=== PATIENT | male | born 1965 | race African-American/Black ===

== ENCOUNTER 2018-08-12 18:19 | Inpatient (IN) | payer OTHER ==
[2018-08-12 20:15] VITALS: BMI 22.3
--- NOTE | 2018-08-12 21:42 | HP ---
CIWA Score Nausea/Vomitin Muscle Tremors: 4-Moderate,w/Arms Extend Anxiety: 3 Agitation: 3 Paroxysmal Sweats: 1-Minimal Palms Moist Orientation: 0-Oriented Tacttile Disturbances: 0-None Auditory Disturbances: 0-None Visual Disturbances: 0-None Headache: 4-Moderately Severe CIWA-Ar Total Score: 17 - Admission Criteria OASAS Guidelines: Admission for Medically Managed Detox: Requires at least one of the followin. CIWA greater than 12 2. Seizures within the past 24 hours 3. Delirium tremens within the past 24 hours 4. Hallucinations within the past 24 hours 5. Acute intervention needed for co occurring medical disorder 6. Acute intervention needed for co occurring psychiatric disorder 7. Severe withdrawal that cannot be handled at a lower level of care (continued vomiting, continued diarrhea, abnormal vital signs) requiring intravenous medication and/or fluids 8. Admission ROS S - [facility] Chief Complaint: Alcohol withdrawal symptoms Allergies/Adverse Reactions: Allergies Allergy/AdvReac Type Severity Reaction Status Date / Time No Known Allergies Allergy Verified 08/12/18 20:11 History of Present Illness: 53 years old male with a long history of alcohol dependence is seeking admission to detox. Patient has been in previous detox and reports insignificant period of sobriety. He past medical history asthma and reports psych. history of Bipolar, Schizophrenia, Depression and PTSD. He denies suicide ideation at this time. Exam Limitations: No Limitations - Ebola screening Have you traveled outside of the country in the last 21 days: No (N) Have you had contact with anyone from an Ebola affected area: No Do you have a fever: No - Review of Systems Constitutional: Chills, Malaise, Changes in sleep EENT: reports: Sinus Pressure Respiratory: reports: No Symptoms reported Cardiac: reports: No Symptoms Reported GI: reports: Poor Appetite, Poor Fluid Intake, Abdominal cramping : reports: No Symptoms Reported Musculoskeletal: reports: Back Pain Integumentary: reports: Dryness, Flushing Neuro: reports: Headache, Tremors Endocrine: reports: No Symptoms Reported Hematology: reports: No Symptoms Reported Psychiatric: reports: Anxious Other Systems: Reviewed and Negative Patient History - Patient Medical History Hx Anemia: No Hx Asthma: Yes (Not on medication) Hx Chronic Obstructive Pulmonary Disease (COPD): No Hx Cancer: No Hx Cardiac Disorders: No Hx Congestive Heart Failure: No Hx Hypertension: No Hx Hypercholesterolemia: No Hx Pacemaker: No HX Cerebrovascular Accident: No Hx Seizures: No Hx Dementia: No Hx Diabetes: No Hx Gastrointestinal Disorders: No Hx Liver Disease: No Hx Genitourinary Disorders: No Hx Sexually Transmitted Disorders: No Hx Renal Disease (ESRD): No Hx Thyroid Disease: No Hx Human Immunodeficiency Virus (HIV): No (Negative 2018) Hx Hepatitis C: No Hx Depression: Yes Hx Suicide Attempt: No (Denies suicidal ideation at this time) Hx Bipolar Disorder: Yes Hx Schizophrenia: Yes - Patient Surgical History Past Surgical History: Yes Hx Neurologic Surgery: No Hx Cataract Extraction: No Hx Cardiac Surgery: No Hx Lung Surgery: No Hx Abdominal Surgery: No Hx Appendectomy: No Hx Cholecystectomy: No Hx Genitourinary Surgery: No Hx Orthopedic Surgery: No Other Surgical History: Cheek bone repair 2012 Anesthesia Reaction: No - PPD History Previous Implant?: No Documented Results: Negative w/o proof Implanted On Prior [facility] Admission?: No PPD to be Administered?: Yes - Reproductive History Patient is a Female of Child Bearing Age (11 -55 yrs old): No (Male) - Smoking Cessation Smoking history: Former smoker Have you smoked in the past 12 months: No Hx Chewing Tobacco Use: No Initiated information on smoking cessation: No - Substance & Tx. History Hx Alcohol Use: Yes Hx Substance Use: Yes Substance Use Type: Alcohol, Cocaine Hx Substance Use Treatment: No - Substances abused Alcohol Substance route: Oral Frequency: Daily Amount used: 3 PINTS Age of first use: 11 Date of last use: 08/12/18 Family Disease History - Family Disease History Family History: Denies Admission Physical Exam [facility] - Vital Signs Vital Signs: Vital Signs - 24 hr 08/12/18 08/12/18 20:11 20:54 Temperature 97.6 F 97.6 F Pulse Rate 83 83 Respiratory 18 18 Rate Blood Pressure 121/67 121/67 - Physical General Appearance: Yes: Moderate Distress HEENTM: Yes: EOMI, Normal ENT Inspection, Normal Voice, ALEXIS Respiratory: Yes: Lungs Clear, Normal Breath Sounds, No Respiratory Distress Neck: Yes: Supple Breast: Yes: Breast Exam Deferred Cardiology: Yes: Regular Rhythm, Regular Rate Abdominal: Yes: Normal Bowel Sounds, Soft Genitourinary: Yes: Within Normal Limits Back: Yes: Normal Inspection Musculoskeletal: Yes: Back pain, Muscle Pain Extremities: Yes: Tremors Neurological: Yes: Alert, Normal Mood/Affect Integumentary: Yes: Warm Lymphatic: Yes: Within Normal Limits - Diagnostic (1) Asthma Current Visit: Yes Status: Acute (2) Alcohol dependence with uncomplicated withdrawal Current Visit: Yes Status: Acute Cleared for Admission S - Detox or Rehab [facility] Level of Care: Medically Managed Detox Regimen/Protocol: Librium Breathalyzer - Breathalyzer Breathalyzer: 0 Urine Drug Screen - Test Device Lot number: [id number] Expiration date: 05/05/20 - Control Is test valid?: Yes - Results Drug screen NEGATIVE: No Urine drug screen results: THC-Marijuana, ESTER-Cocaine Inpatient Rehab Admission - Rehab Decision to Admit Inpatient rehab admission?: No
[2018-08-12] MEDS ORDERED: IBUPROFEN 400 MG TABLET (FP) PO PRN (21:54)
[2018-08-12] MEDS ORDERED: ACETAMINOPHEN 325 MG TABLET (FP) PO PRN ×2 (21:54)
[2018-08-12] MEDS ORDERED: MAG HYDROX/AL HYDROX/SIMETH 30 ML UNIT-DOSE CUP PO PRN (21:54)
[2018-08-12] MEDS ORDERED: BISMUTH SUBSALICYLATE 524 MG/30 ML UD PO PRN (21:54)
[2018-08-12] MEDS ORDERED: MENTHOL/PHENOL 1 EACH UD MM PRN (21:54)
[2018-08-12] MEDS ORDERED: MAGNESIUM HYDROX 2400MG/30ML ORAL SUSPENSION 30 ML CUP PO PRN (21:54)
[2018-08-12] MEDS ORDERED: MAGNESIUM CITRATE 300 ML BOTTLE PO PRN (21:54)
[2018-08-12] MEDS ORDERED: hydrOXYzine PAMOATE 25 MG CAPSULE (FP) PO PRN (21:54)
[2018-08-12] MEDS ORDERED: chlordiazePOXIDE HCL 25 MG CAPSULE PO PRN (21:54)
[2018-08-12] MEDS: chlordiazePOXIDE HCL 25 MG CAPSULE PO SCH (23:06)
[2018-08-12] MEDS: MELATONIN 5 MG TABLETS PO PRN (23:07)
[2018-08-12] MEDS: THIAMINE HCL 100 MG TABLET (FP) PO SCH (23:11)
[2018-08-13] MEDS: chlordiazePOXIDE HCL 25 MG CAPSULE PO SCH ×4 (06:15→23:21)
--- NOTE | 2018-08-13 10:06 | PN ---
[facility] CIWA - CIWA Score Nausea/Vomitin-No Nausea/No Vomiting Muscle Tremors: 3 Anxiety: 2 Agitation: 1-Slight > Activity Paroxysmal Sweats: 4-Forehead w/Sweat Beads Orientation: 0-Oriented Tacttile Disturbances: 0-None Auditory Disturbances: 0-None Visual Disturbances: 0-None Headache: 2-Mild CIWA-Ar Total Score: 12 [facility] Progress Note (SOAP) Subjective: c/o sweats, headache, back pain, and anxiety. Objective: 08/13/18 10:08 Vital Signs 08/13/18 08/13/18 08/13/18 03:30 07:52 09:48 Temperature 96.8 F L 99.1 F Pulse Rate 75 82 Respiratory 18 18 18 Rate Blood Pressure 107/50 L 127/72 Assessment: 08/13/18 10:09 AOX3, no distress, ambulating in the unit withdrawal symptom persists Plan: continue detox increase fluids.
[2018-08-13] MEDS: PRENATAL VITAMINS W/ FOLIC ACID TABLET (FP) PO SCH (10:32)
--- NOTE | 2018-08-13 10:38 | CONSULT ---
[facility] Psychiatric Consult - Data Date of interview: 08/13/18 Admission source: [facility] Identifying data: First admission to [facility] for this 53 y/o AA male seeking detoxification treatment (alcohol, cocaine, cannabis). Patient is single, a father of five, homeless, unemployed and deprived of income. Substance Abuse History: Discussed with patient in this session. See [facility] report for details : Smoking history: Former smoker. Have you smoked in the past 12 months: No. Hx Chewing Tobacco Use: No. Initiated information on smoking cessation: No. - Substance & Tx. History. Hx Alcohol Use: Yes. Hx Substance Use: Yes. Substance Use Type: Alcohol, Cocaine. Hx Substance Use Treatment: No. - Substances abused. Alcohol. Substance route: Oral. Frequency: Daily. Amount used: 3 PINTS. Age of first use: 11. Date of last use: 08/12/18 Medical History: Bronchial asthma. Psychiatric History: No reported history of psychiatric hospitalizations. Patient has, reportedly, been diagnosed with schizophrenia, bipolar disorder and PTSD. He indicates affiliation with the [facility] [facility] in [facility] (no show for weeks as per self-report). Maintained on aripriprazole (dose + date of last intake : not recalled). Mr Paz denies history of suicide attempts. Physical/Sexual Abuse/Trauma History: Heavy stressors : history of 28 cumulative years of incarceration, homelessness, lack of support, financial difficulties, no vocational skills and addictions. Additional Comment: Urine drug screen results: THC-Marijuana, ESTER-Cocaine. Noted. Mental Status Exam - Mental Status Exam Alert and Oriented to: Time, Place, Person Cognitive Function: Grossly Intact Patient Appearance: Unkempt, Disheveled Mood: Nervous, Withdrawn Affect: Mood Congruent, Constricted Patient Behavior: Fatigued, Cooperative Speech Pattern: Clear Voice Loudness: Normal Thought Process: Goal Oriented Thought Disorder: Not Present Hallucinations: Denies Suicidal Ideation: Denies Homicidal Ideation: Denies Insight/Judgement: Poor Sleep: Fair Appetite: Good Muscle strength/Tone: Normal Gait/Station: Normal Psychiatric Findings - Problem List ([place] 1, 2,3) (1) Alcohol dependence with uncomplicated withdrawal Current Visit: Yes Status: Acute (2) Cocaine dependence Current Visit: Yes Status: Chronic (3) Substance induced mood disorder Current Visit: Yes Status: Chronic (4) History of posttraumatic stress disorder (PTSD) Current Visit: Yes Status: Chronic (5) History of schizophrenia Current Visit: Yes Status: Chronic (6) Insomnia Current Visit: Yes Status: Chronic (7) Non-compliance Current Visit: Yes Status: Chronic - Initial Treatment Plan Initial Treatment Plan: Psychoeducation. Sleep hygiene. Support. AA meetings. Observation. Medication reconciliation : no Home medications. Insomnia is addressed with melatonin at bedtime. Side effects/benefits discussed with the patient. Consent (verbal) granted to
[2018-08-13 11:33] LABS: HEMATOCRIT 43.2 % (35.4-49); HEMOGLOBIN 14.4 GM/dL (11.7-16.9); MCH 28.1 pg (25.7-33.7); MCHC 33.3 g/dl (32.0-35.9); MEAN CELL VOLUME 84.5 fl (80-96); MEAN PLT VOLUME 8.4 fl (7.5-11.1); PLATELET COUNT 277 K/MM3 (134-434); RBC 5.11 M/mm3 (4.00-5.60); RDW 14.5 % (11.9-15.9); WHITE BLOOD COUNT 5.8 K/mm3 (4.0-10.0)
[2018-08-13 11:53] LABS: ALBUMIN 3.2 g/dl (3.4-5.0); BILIRUBIN,TOTAL 0.4 mg/dL (0.2-1); CALCIUM 8.6 mg/dL (8.5-10.1); CREATININE 0.9 mg/dL (0.55-1.3); POTASSIUM 4.2 mmol/L (3.5-5.1)
[2018-08-13] MEDS: THIAMINE HCL 100 MG TABLET (FP) PO SCH (23:22)
[2018-08-14] MEDS: chlordiazePOXIDE HCL 25 MG CAPSULE PO SCH ×3 (06:14→17:51)
[2018-08-14] MEDS: METHOCARBAMOL 500 MG TABLET PO PRN ×2 (08:52→17:50)
[2018-08-14] MEDS: PRENATAL VITAMINS W/ FOLIC ACID TABLET (FP) PO SCH (10:36)
--- NOTE | 2018-08-14 12:26 | EKG ---
Test Reason : Blood Pressure : / mmHG Vent. Rate : 078 BPM Atrial Rate : 078 BPM P-R Int : 118 ms QRS Dur : 082 ms QT Int : 376 ms P-R-T Axes : 077 071 023 degrees QTc Int : 428 ms NORMAL SINUS RHYTHM NORMAL ECG NO PREVIOUS ECGS AVAILABLE Confirmed by IDALIA TALLEY MD ([id number]) on 08/14/2018 12:25:51 PM Referred By: Confirmed By:IDALIA TALLEY MD
--- NOTE | 2018-08-14 14:24 | PN ---
[facility] CIWA - CIWA Score Nausea/Vomitin-Mild Nausea/No Vomiting Muscle Tremors: 3 Anxiety: 2 Agitation: 2 Paroxysmal Sweats: 3 Orientation: 0-Oriented Tacttile Disturbances: 0-None Auditory Disturbances: 0-None Visual Disturbances: 0-None Headache: 0-None Present CIWA-Ar Total Score: 11 [facility] Progress Note (SOAP) Subjective: Back pain Objective: 08/14/18 14:23 Last Vital Signs Temp Pulse Resp BP Pulse Ox 98.1 F 72 16 116/64 08/14/18 14:10 08/14/18 14:10 08/14/18 14:10 08/14/18 14:10 Laboratory Tests 08/13/18 08/13/18 08/13/18 08:00 08:00 08:00 WBC 5.8 RBC 5.11 Hgb 14.4 Hct 43.2 MCV 84.5 MCH 28.1 MCHC 33.3 RDW 14.5 Plt Count 277 MPV 8.4 Sodium 139 Potassium 4.2 Chloride 106 Carbon Dioxide 27 Anion Gap 6 L BUN 11 Creatinine 0.9 Est GFR (CKD-EPI)AfAm 114.21 Est GFR (CKD-EPI)NonAf 98.54 Random Glucose 90 Calcium 8.6 Total Bilirubin 0.4 AST 19 ALT 20 Alkaline Phosphatase 102 Total Protein 7.0 Albumin 3.2 L RPR Titer Nonreactive Labs reviewed Assessment: 08/14/18 14:23 Withdrawal symptoms Plan: Continue detox Encouraged PO water hydration
[2018-08-14] MEDS: THIAMINE HCL 100 MG TABLET (FP) PO SCH (22:52)
[2018-08-14] MEDS: MELATONIN 5 MG TABLETS PO PRN (22:52)
[2018-08-14] MEDS: chlordiazePOXIDE HCL 10 MG CAPSULE PO SCH (22:52)
[2018-08-14] MEDS ORDERED: chlordiazePOXIDE HCL 10 MG CAPSULE PO PRN (23:00)
[2018-08-15] MEDS: chlordiazePOXIDE HCL 10 MG CAPSULE PO SCH (06:57)
[2018-08-15] MEDS: METHOCARBAMOL 500 MG TABLET PO PRN (06:59)
[2018-08-15 09:00] VITALS: BP 103/62; PULSE 81; TEMP 96.8
--- NOTE | 2018-08-15 16:02 | PN ---
S CIWA - CIWA Score Nausea/Vomitin-No Nausea/No Vomiting Muscle Tremors: None Anxiety: 0-No Anxiety, at Ease Agitation: 0-Normal Activity Paroxysmal Sweats: No Perspiration Orientation: 0-Oriented Tacttile Disturbances: 0-None Auditory Disturbances: 0-None Visual Disturbances: 0-None Headache: 0-None Present CIWA-Ar Total Score: 0 [facility] Progress Note (SOAP) Subjective: Patient denies current Withdrawal / Detox symptoms and reports that he feels well overall. Objective: PATIENT A & O X 3, OBSERVED AMBULATING ON UNIT UNASSISTED. IN NO ACUTE DISTRESS. 08/15/18 16:00 Vital Signs Temperature 96.8 F L 08/15/18 09:00 Pulse Rate 81 08/15/18 09:00 Respiratory Rate 18 08/15/18 09:00 Blood Pressure 103/62 08/15/18 09:00 O2 Sat by Pulse Oximetry (%) Laboratory Tests 08/13/18 08/13/18 08/13/18 08:00 08:00 08:00 WBC 5.8 RBC 5.11 Hgb 14.4 Hct 43.2 MCV 84.5 MCH 28.1 MCHC 33.3 RDW 14.5 Plt Count 277 MPV 8.4 Sodium 139 Potassium 4.2 Chloride 106 Carbon Dioxide 27 Anion Gap 6 L BUN 11 Creatinine 0.9 Est GFR (CKD-EPI)AfAm 114.21 Est GFR (CKD-EPI)NonAf 98.54 Random Glucose 90 Calcium 8.6 Total Bilirubin 0.4 AST 19 ALT 20 Alkaline Phosphatase 102 Total Protein 7.0 Albumin 3.2 L RPR Titer Nonreactive LABS NOTED. Assessment: 08/15/18 16:01 COMPLETION OF DETOX REGIMEN. Plan: PATIENT SCHEDULED FOR DISCHARGE FROM DETOX UNIT TODAY.
--- NOTE | 2018-08-15 16:07 | DS ---
[facility] Detox Discharge Summary Admission Date: 08/12/18 Discharge Date: 08/15/18 - History Present History: Alcohol Dependence, Cocaine Dependence Additional Comments: PATIENT DENIES CURRENT WITHDRAWAL / DETOX SYMPTOMS AND REPORTS THAT HE FEELS WELL OVERALL AT TIME OF DISCHARGE FROM DETOX UNIT. PATIENT RETURNING TO ' [facility] OUTPATIENT PROGRAM ([place], [place]), WHERE HE HAS PREVIOUSLY BEEN A CLIENT FOR AFTERCARE. PATIENT WAS DISCHARGED FROM DETOX UNIT IN STABLE MEDICAL CONDITION. Pertinent Past History: Asthma, Bipolar Disorder, P.T.S.D., Depression, Schizophrenia, Insomnia. - Physical Exam Results Vital Signs: Vital Signs Temperature 96.8 F L 08/15/18 09:00 Pulse Rate 81 08/15/18 09:00 Respiratory Rate 18 08/15/18 09:00 Blood Pressure 103/62 08/15/18 09:00 O2 Sat by Pulse Oximetry (%) Pertinent Admission Physical Exam Findings: WITHDRAWAL SYMPTOMS. Laboratory Tests 08/13/18 08/13/18 08/13/18 08:00 08:00 08:00 WBC 5.8 RBC 5.11 Hgb 14.4 Hct 43.2 MCV 84.5 MCH 28.1 MCHC 33.3 RDW 14.5 Plt Count 277 MPV 8.4 Sodium 139 Potassium 4.2 Chloride 106 Carbon Dioxide 27 Anion Gap 6 L BUN 11 Creatinine 0.9 Est GFR (CKD-EPI)AfAm 114.21 Est GFR (CKD-EPI)NonAf 98.54 Random Glucose 90 Calcium 8.6 Total Bilirubin 0.4 AST 19 ALT 20 Alkaline Phosphatase 102 Total Protein 7.0 Albumin 3.2 L RPR Titer Nonreactive LABS NOTED. - Treatment Hospital Course: Detox Protocol Followed, Detoxed Safely, Responded well, Discharged Condition Good Patient has Accepted a Rehab Referral to: PT. RETURNING TO [facility] ([place], [place]). - Medication Discharge Medications: Ambulatory Orders NK [No Known Home Medication] 08/12/18 - Diagnosis (1) Alcohol dependence with uncomplicated withdrawal Status: Acute (2) Asthma Status: Acute Qualifiers: Asthma severity: unspecified severity Asthma persistence: unspecified Asthma complication type: uncomplicated Qualified Code(s): J45.909 - Unspecified asthma, uncomplicated (3) Cocaine dependence Status: Chronic Qualifiers: Substance use status: in withdrawal Qualified Code(s): F14.23 - Cocaine dependence with withdrawal (4) History of posttraumatic stress disorder (PTSD) Status: Chronic (5) History of schizophrenia Status: Chronic (6) Insomnia Status: Chronic Qualifiers: Insomnia type: unspecified Qualified Code(s): G47.00 - Insomnia, unspecified (7) Non-compliance Status: Chronic - AMA Did Patient Leave Against Medical Advice: No
[2018-08-15] MEDS ORDERED: chlordiazePOXIDE HCL 10 MG CAPSULE PO SCH (23:00)
== END 2018-08-15 10:45 | disposition left against medical advice (07) | DRG 770 ==
LOC: YASAS 18:19 → Y6N 21:59
PROVIDERS: ADMIT Surgery; ATTEND Surgery
PROC: HZ2ZZZZ Detoxification Services for Substance Abuse Treatment (ICD-10-PCS; principal; 2018-08-12)
DX: F10.230 Alcohol dependence with withdrawal, uncomplicated (principal); F14.20 Cocaine dependence, uncomplicated; F19.24 Other psychoactive substance dependence with psychoactive substance-induced mood disorder; J45.909 Unspecified asthma, uncomplicated; G47.00 Insomnia, unspecified; Z91.19 Patient's noncompliance with other medical treatment and regimen; Z87.891 Personal history of nicotine dependence
CPT/HCPCS: 36415; 80053; 85027; 86593; 93005; 93010

== ENCOUNTER 2023-08-14 10:18 | Inpatient (IN) | payer BC, OTHER ==
[2023-08-14 11:46] VITALS: BMI 20.9
[2023-08-14] MEDS ORDERED: IBUPROFEN 400 MG TABLET (FP) PO PRN (13:18)
[2023-08-14] MEDS ORDERED: MAGNESIUM HYDROX 2400MG/30ML ORAL SUSPENSION 30 ML CUP PO PRN (13:18)
[2023-08-14] MEDS ORDERED: BENZONATATE 200 MG CAPSULE PO PRN (13:18)
[2023-08-14] MEDS ORDERED: MAG HYDROX/AL HYDROX/SIMETH 30 ML UNIT-DOSE CUP PO PRN (13:18)
[2023-08-14] MEDS ORDERED: BENZOCAINE/MENTHOL (CHLORASEPTIC ) LOZENGE MM PRN (13:18)
[2023-08-14] MEDS ORDERED: guaiFENesin 600 MG TABLET.ER (FP) PO PRN (13:18)
[2023-08-14] MEDS ORDERED: NALOXONE HCL 0.4 MG/ML VIAL IM PRN (13:18)
[2023-08-14] MEDS ORDERED: POLYETHYLENE GLYCOL (HEALTHYLAX) 3350 17 GM PACKET PO PRN (13:18)
[2023-08-14] MEDS ORDERED: DICYCLOMINE HCL 10 MG CAPSULE PO PRN (13:18)
[2023-08-14] MEDS ORDERED: ONDANSETRON *ODT* 4 MG TABLET SL PRN (13:18)
[2023-08-14] MEDS ORDERED: ACETAMINOPHEN 325 MG TABLET (FP) PO PRN (13:18)
[2023-08-14] MEDS ORDERED: BISMUTH SUBSALICYLATE 524 MG/30 ML PO PRN (13:18)
[2023-08-14] MEDS ORDERED: NALOXONE HCL (KLOXXADO) 8 MG SPRAY NS PRN (13:18)
[2023-08-14] MEDS ORDERED: hydrOXYzine PAMOATE 25 MG CAPSULE (FP) PO PRN (13:18)
[2023-08-14] MEDS ORDERED: LOPERAMIDE HCL 2 MG CAPSULE PO PRN (13:18)
[2023-08-14] MEDS: IBUPROFEN 600 MG TABLET (FP) PO PRN (15:00)
[2023-08-14] MEDS ORDERED: IBUPROFEN 600 MG TABLET (FP) PO ONE (15:06)
[2023-08-14] MEDS: PANTOPRAZOLE 40 MG TABLET PO SCH (17:47)
[2023-08-14] MEDS: MELATONIN 5 MG TABLETS PO SCH (22:48)
[2023-08-14] MEDS: THIAMINE 100 MG TABLET PO SCH (22:48)
[2023-08-15] MEDS: PRENATAL VITAMINS W/ FOLIC ACID TABLET (FP) PO SCH (09:43)
[2023-08-15] MEDS: diazePAM 5 MG TABLET PO SCH (22:25)
[2023-08-15] MEDS: METHOCARBAMOL 500 MG TABLET PO PRN (22:25)
[2023-08-16] MEDS: diazePAM 5 MG TABLET PO SCH (06:44)
[2023-08-17] MEDS: diazePAM 5 MG TABLET PO ONE (06:15)
[2023-08-17 09:34] VITALS: BP 105/54; PULSE 70; RESP 18; TEMP 97.7
== END 2023-08-17 10:26 | disposition home or self-care (01) | DRG 774 ==
LOC: YASAS 10:18 → Y6N 14:30 → UNDOADMIN 14:30
PROVIDERS: ADMIT Allergy & Immunology; ATTEND Surgery
PROC: HZ2ZZZZ Detoxification Services for Substance Abuse Treatment (ICD-10-PCS; principal; 2023-08-14)
DX: F10.230 Alcohol dependence with withdrawal, uncomplicated (principal); F14.20 Cocaine dependence, uncomplicated; F12.20 Cannabis dependence, uncomplicated; F31.9 Bipolar disorder, unspecified; F25.9 Schizoaffective disorder, unspecified; F43.10 Post-traumatic stress disorder, unspecified; E78.5 Hyperlipidemia, unspecified; K21.9 Gastro-esophageal reflux disease without esophagitis; J45.909 Unspecified asthma, uncomplicated; M51.87 Other intervertebral disc disorders, lumbosacral region; Z87.891 Personal history of nicotine dependence; Z62.810 Personal history of physical and sexual abuse in childhood; Z63.8 Other specified problems related to primary support group; Z56.0 Unemployment, unspecified; Z59.00 Homelessness unspecified
CPT/HCPCS: 80305; 80307; 93005; 93010